=== PATIENT | male | born 1990 | race Caucasian/White ===

== ENCOUNTER 2019-03-15 01:14 | Emergency (ER) | payer MEDICAID ==
[~2019-03-15] VITALS: Ht 167.6 cm; Wt 74.4 kg
[2019-03-15 01:16] VITALS: BP 125/76
--- NOTE | 2019-03-15 01:19 | NUR ---
PT TAKEN TO BED 11
--- NOTE | 2019-03-15 01:25 | NUR ---
Dr. Burnett examining patient.
[2019-03-15] MEDS ORDERED: ASPIRIN 325 MG TAB PO ONE (01:35)
--- NOTE | 2019-03-15 01:35 | NUR ---
Pt C/O C/P. PT HAS NO MEDICAL HX. PT STATE PAIN RADIATES TO LEFT ARM. PT STATES NOT HAVING THIS PAIN IN PAST. PT APPEARS TO BE IN NO DISTRESS. EKG SHOW SINUS LIZZ WITH ACUTE MT. DR. NEWBERRY MADE AWARE. ORDERED REPEAT EKG AT 0200. DENIES N/V/D; SKIN IS PINK/WARM/DRY; AAOX4 WITH EVEN AND STEADY GAIT; LUNGS CLEAR BL; HR EVEN AND REGULAR; PT DENIES ANY FEVER, SOB, OR COUGH AT THIS TIME; PATIENT STATES PAIN OF 3/10 AT THIS TIME; VSS; PATIENT POSITIONED FOR COMFORT; HOB ELEVATED; BEDRAILS UP X2; BED DOWN. ER MD MADE AWARE OF PT STATUS.
[2019-03-15 01:58] LABS: ALBUMIN 3.6 g/dL (3.4-5.0); ANION GAP 13.9 (8-16); CARBON DIOXIDE 26.6 mmol/L (21-32); CREATININE 1.1 mg/dL (0.6-1.3); POTASSIUM 3.5 mmol/L (3.5-5.1); TOTAL BILIRUBIN 0.2 mg/dL (0.0-1.0)
[2019-03-15 02:01] LABS: PROTHROMBIN TIME 10.6 secs (10.8-13.4)
--- NOTE | 2019-03-15 02:09 | NUR ---
EKG DONE HANDED TO SCARLET MCCOY.
[2019-03-15 02:13] LABS: BASOPHILS % (AUTO) 0.4 % (0.0-2.0); EOSINOPHILS # (AUTO) 0.2 K/uL (0-0.4); HEMATOCRIT 43.7 % (36-52); HEMOGLOBIN 14.7 g/dL (12.0-18.0); LYMPHOCYTES % (AUTO) 34.4 % (20.5-51.1); MEAN CORPUSCULAR HEMOGLOBIN 32 pg (27-31); MEAN CORPUSCULAR HGB CONC 34 g/dL (33-37); MEAN CORPUSCULAR VOLUME 96.4 fL (80-94); MONOCYTES # (AUTO) 0.5 K/uL (0.8-1.0); MONOCYTES % (AUTO) 8.4 % (1.7-9.3); NEUTROPHILS # (AUTO) 3.1 K/uL (1.8-7.7); NEUTROPHILS % (AUTO) 53.8 % (42.2-75.2); PLATELET COUNT (AUTO) 132 K/uL (140-450); RED BLOOD CELL COUNT(AUTO) 4.54 MIL/uL (4.20-6.10); RED CELL DISTRIBUTION WIDTH 13.8 % (11.6-13.7); WHITE BLOOD COUNT (AUTO) 5.8 K/uL (4.8-10.8)
--- NOTE | 2019-03-15 03:30 | NUR ---
NO CHANGES FROM PREVIOUS ASSESSMENT. VSS. PT APPEARS TO BE IN NO DISTRESS.
--- NOTE | 2019-03-15 03:56 | NUR ---
SECOND TROPONIN SAMPLE COLLECTED AND SENT TO LAB.
--- NOTE | 2019-03-15 05:04 | NUR ---
PT ACCEPTED TO [facility] IN [place]. PT REFUSING TO BE TRANSFERRED TO HOSPITAL. PT STATES ITS TO FAR. EXPLAINED TO PT THE NEED TO SEE POCKET CUTTER. PT STILL REFUSING TO STAY. PT AAOX4. PT ABLE TO MAKE OWN DECISIONS. DR. NEWBERRY AWARE. PT SIGNED AMA.
[2019-03-15 05:09] VITALS: BP 124/75
== END 2019-03-15 05:04 | disposition left against medical advice (07) ==
LOC: MED 01:14
DX: R07.9 Chest pain, unspecified (principal); R20.0 Anesthesia of skin; R00.2 Palpitations
CPT/HCPCS: 36415; 71045; 80053; 84484; 85025; 85610; 85730; 93005; 99284; Q0092

== ENCOUNTER 2019-03-17 19:45 | Emergency (ER) | payer MEDICAID ==
[~2019-03-17] VITALS: Ht 167.6 cm; Wt 74.8 kg
[2019-03-17 19:53] VITALS: BP 124/78
--- NOTE | 2019-03-17 20:01 | NUR ---
PT TO BED 7
--- NOTE | 2019-03-17 20:03 | NUR ---
AMBULATED TO BED 07 WITH UPRIGHT STEADY GAIT.
--- NOTE | 2019-03-17 20:10 | NUR ---
28 YEAR OLD MALE COMPLAINS OF NONRADIATING CHEST PAIN 4/10 ON RIGHT SIDE OF CHEST X 1 HOUR AGO. PATIENT STATES THAT IT OCCURED AFTER EATING. PATIENT DENIES SOB, NAUSEA, VOMITTING, DIARRHEA. PATIENT AOX4, BREATHING EVEN AND UNLABORED, SKIN WARM AND DRY. BED IN LOWEST POSITION, LOCKED, BED RAIL UPX1. PMH - DENIES ALLERGIES - NKA
[2019-03-17] MEDS ORDERED: DIAZEPAM 5 MG TAB PO ONE (20:40)
[2019-03-17] MEDS ORDERED: KETOROLAC 30 MG/ML VIAL IM ONE (20:40)
[2019-03-17 21:22] LABS: BASOPHILS % (AUTO) 0.5 % (0.0-2.0); EOSINOPHILS # (AUTO) 0.1 K/uL (0-0.4); EOSINOPHILS % (AUTO) 1.6 % (0.0-4.0); HEMATOCRIT 43.9 % (36-52); HEMOGLOBIN 14.6 g/dL (12.0-18.0); LYMPHOCYTES # (AUTO) 1.5 K/uL (2.0-11.5); MEAN CORPUSCULAR HEMOGLOBIN 32 pg (27-31); MEAN CORPUSCULAR HGB CONC 33 g/dL (33-37); MEAN CORPUSCULAR VOLUME 96.8 fL (80-94); MONOCYTES # (AUTO) 0.4 K/uL (0.8-1.0); MONOCYTES % (AUTO) 6.7 % (1.7-9.3); NEUTROPHILS # (AUTO) 4.3 K/uL (1.8-7.7); NEUTROPHILS % (AUTO) 68.2 % (42.2-75.2); PLATELET COUNT (AUTO) 138 K/uL (140-450); RED BLOOD CELL COUNT(AUTO) 4.54 MIL/uL (4.20-6.10); WHITE BLOOD COUNT (AUTO) 6.3 K/uL (4.8-10.8)
[2019-03-17 21:35] LABS: BARBITURATE, URINE NEG. ng/ml (NEG <=200); BENZODIAZEPINE, URINE NEG. ng/mL (NEG <=200); CANNABINOID, URINE NEG. ng/mL (NEG <=50); COCAINE, URINE NEG. ng/mL (NEG <=300); OPIATE, URINE NEG. ng/mL (NEG <=2000); PHENCYCLIDINE SCREEN,URINE NEG. ng/mL (NEG <=25)
[2019-03-17 21:54] LABS: ALBUMIN 3.7 g/dL (3.4-5.0); ANION GAP 10.1 (8-16); CARBON DIOXIDE 27.3 mmol/L (21-32); CREATININE 1.2 mg/dL (0.6-1.3); POTASSIUM 3.4 mmol/L (3.5-5.1); TOTAL BILIRUBIN 0.3 mg/dL (0.0-1.0)
--- NOTE | 2019-03-17 22:00 | NUR ---
PATIENT ALERT AND ORIENTED, BREATHING EVEN AND UNLABORED
[2019-03-17 22:03] LABS: CREATINE KINASE MB 0.8 ng/mL (0-3.6)
--- NOTE | 2019-03-17 23:00 | NUR ---
PATIENT ALERT AND ORIENTED, BREATHING EVEN AND UNLABORED
--- NOTE | 2019-03-18 | NUR ---
Patient discharged with v/s stable. Written and verbal after care instructions ABOUT CHEST PAIN (NONSPECIFIC) given and explained. Patient alert, oriented and verbalized understanding of instructions. Ambulatory with steady gait. All questions addressed prior to discharge. ID band removed. Patient advised to follow up with PMD. Rx of NAPROSYN given. Patient educated on indication of medication including possible reaction and side effects. Opportunity to ask questions provided and answered.
[2019-03-18 00:02] VITALS: BP 132/57
== END 2019-03-18 | disposition home or self-care (01) ==
LOC: MED 19:45
DX: R07.9 Chest pain, unspecified (principal); R20.0 Anesthesia of skin; M43.6 Torticollis
CPT/HCPCS: 36415; 71045; 80053; 80305; 82550; 82553; 83690; 84484; 85025; 93005; 96372; 99284; J1885; Q0092

== ENCOUNTER 2019-04-23 12:47 | Emergency (ER) | payer MEDICAID ==
[~2019-04-23] VITALS: Ht 167.6 cm; Wt 72.6 kg
[2019-04-23 12:57] VITALS: BP 138/68
[2019-04-23] MEDS ORDERED: KETOROLAC 30 MG/ML VIAL IM ONE (13:15)
[2019-04-23 14:41] VITALS: BP 134/75
== END 2019-04-23 14:39 | disposition home or self-care (01) ==
LOC: MED 12:47
DX: J02.9 Acute pharyngitis, unspecified (principal)
CPT/HCPCS: 71045; 87081; 96372; 99284; J1885

== ENCOUNTER 2019-05-13 17:34 | Emergency (ER) | payer MEDICAID ==
[~2019-05-13] VITALS: Ht 170.2 cm; Wt 69.5 kg
--- NOTE | 2019-05-13 17:41 | NUR ---
AMBULATED TO BED 12
[2019-05-13 17:42] VITALS: BP 110/66
--- NOTE | 2019-05-13 17:50 | NUR ---
29M PT C/O SWELLING TO NOSE X "A FEW DAYS". NO BLEEDING OBSERVED. NO LOC. NO N/V/D PT. REPORTS THAT HIS SON HAS THE SAME SWELLING ON THE NOSE AND THAT HIS SON WAS PRESCRIBED TO USE FLONASE. SO THE PT. IS ALSO USING HIS SON'S FLONASE THE PAST 2 DAYS. PMHX: GASTRITIS RX: OMEPRAZOLE, FLONASE(NON-PRESCRIPTION)
--- NOTE | 2019-05-13 18:19 | NUR ---
DR XIAO D/C PT WITH RX OF BACTRIM DS.
== END 2019-05-13 18:19 | disposition home or self-care (01) ==
LOC: MED 17:34
DX: L03.211 Cellulitis of face (principal); K29.70 Gastritis, unspecified, without bleeding
CPT/HCPCS: 99283

== ENCOUNTER 2021-08-19 13:50 | Emergency (ER) | payer MEDICAID ==
[~2021-08-19] VITALS: Ht 167.6 cm; Wt 73.5 kg
[2021-08-19 14:10] VITALS: BP 109/66
--- NOTE | 2021-08-19 14:54 | NUR ---
31YR OLD MALE BIB SELF C/O DIZZINESS X1DAY . PT HAD A "ENGERY DRINK" AT 0830 THIS AM . STATES FEELING NERVOUS , HEART RACING, DIZZINESS. CP AND SOB AT THE TIME BUT DENIES EITHER NOW. PT ON BEDSIDE MONITOR HR BRADYCARDIC AT 54 SPO2 98% RA. PT TALKING IN FULL SENTENCES NO DISTRESS NOTED. A&OX4. SKIN PINK WARM DRY. SIDE RAILS UPX1 BED AT LOWEST POSITION. NKDA HTN-BOARDLINE
--- NOTE | 2021-08-19 15:15 | NUR ---
EKG COMPLETED AT BEDSIDE
[2021-08-19 16:10] VITALS: BP 112/57
== END 2021-08-19 16:10 | disposition home or self-care (01) ==
LOC: MED 13:50
DX: R55 Syncope and collapse (principal)
CPT/HCPCS: 81002; 93005; 99283

== ENCOUNTER 2021-09-21 20:45 | Emergency (ER) | payer MEDICAID ==
--- NOTE | 2021-09-21 20:49 | NUR ---
PT CALLED IN LOBBY AND OUTSIDE WITH NO ANSWER.
--- NOTE | 2021-09-21 21:05 | NUR ---
PT CALLED IN LOBBY AND OUTSIDE WITH NO ANSWER. PATIENT LEFT WITHOUT BEING SEEN BY DR. PARRA. NO FURTHER CARE PROVIDED FOR PATIENT.
== END 2021-09-21 21:05 | disposition left against medical advice (07) ==
LOC: MED 20:45
DX: H57.9 Unspecified disorder of eye and adnexa (principal); Z53.21 Procedure and treatment not carried out due to patient leaving prior to being seen by health care provider